=== PATIENT | male | born 1960 | race Caucasian/White ===

== ENCOUNTER 2018-07-16 10:36 | Emergency (ER) | payer OTHER ==
--- NOTE | 2018-07-16 10:58 | EDPHY ---
H & P Stated Complaint: Feels SOB,anxious; abd pain x several days Time Seen by Provider: 07/16/18 10:57 - Personal History Current Tetanus Diphtheria and Acellular Pertussis (TDAP): Yes - Medical/Surgical History Other PMH: HTN. hx broken ribs in May 2018 - Social History Smoking Status: Current every day smoker Constitutional: Initial Vital Signs Temperature (C) 36.4 C 07/16/18 10:39 Heart Rate 72 07/16/18 10:39 Respiratory Rate 18 07/16/18 10:39 Blood Pressure 96/77 L 07/16/18 10:39 O2 Sat (%) 97 07/16/18 10:39 O2 Delivery Mode Nasal Cannula O2 (L/minute) 2 Allergies/Adverse Reactions: No Known Allergies Allergy (Unverified 07/16/18 10:37) Home Medications: Medication Instructions Recorded Hydrocodone/APAP 5/325 [[place] 1 - 2 each PO Q4-6PRN PRN #20 tab 07/16/18 5/325] Lisinopril [Zestril 20 mg (*)] 20 mg PO 07/16/18 amLODIPine BESYLATE [Norvasc 5 mg 5 mg PO DAILY 07/16/18 (*)] Medical Decision Making - Diagnostics Imaging Results: Imaging Impressions Chest X-Ray 07/16/18 11:12 Impression: No acute pulmonary disease. Imaging: I viewed and interpreted images myself ED Course/Re-evaluation: CHIEF COMPLAINT: Shortness of breath HISTORY OF PRESENT ILLNESS: The patient is a 57 y/o male complaining of shortness of breath onset this morning. He reports one month ago he was choking on food and a coworker performed the Heimlich maneuver. He says this resulted in broken ribs and he's had ongoing abdominal pain since then. Yesterday he began vomiting and reports initial emesis was red in color, though he attributed this to eating pizza, and was clear today. Within the last half-hour he developed sudden shortness of breath with no obvious cause. He currently feels like he can't get a full deep breath, but denies chest pain. He has difficulty communicating due to shortness of breath. He denies fever, cough, diarrhea. REVIEW OF SYSTEMS: A comprehensive 10 system review of systems is otherwise negative aside from elements mentioned in the history of present illness and medical decision making. PHYSICAL EXAM: HR, BP, O2 Sat, RR. Temp noted General Appearance: Alert, well hydrated, appropriate, and non-toxic appearing. Head: Atraumatic without scalp tenderness or obvious injury Eyes: Pupils equal, round, reactive to light and accommodation, EOMI, no trauma , no injection. Ears: Clear bilaterally, no perforation, normal landmarks Nose: Atraumatic, no rhinorrhea, clear. Throat: There is no erythema or exudates, no lesions, normal tonsils, mucus membranes moist. Neck: Supple, nontender, no lymphadenopathy. Respiratory: No retractions, no distress, no wheezes, and no accessory muscle use. Decreased breath sounds on the right side to auscultation. Cardiovascular: Regular rate and rhythm, no murmurs, rubs, or gallops. Good capillary refill all extremities. Gastrointestinal: Abdomen is soft, nontender, non-distended, no masses, no rebound, no guarding, no peritoneal signs. Musculoskeletal: Normal active ROM of all extremities, atraumatic. Neurological: Alert, appropriate, and interactive. The patient has non-focal cranial nerves, motor, sensory, and cerebellar exam. Skin: No rashes, good turgor, no nodules on palpation. Past medical history: Recent choking episode with rib injuries Past surgical history: Noncontributory Family history: Noncontributory Social history: Smoker. Lives in [facility] DIAGNOSTICS/PROCEDURES/CRITICAL CARE TIME: Study: PA and Lateral Chest X-ray Indication: Right-sided chest pain Results: After viewing the images myself on the PACS system. My interpretation of the images is: Probable subacute rib fractures right mid axillary line. I have discussed the above x-rays with the radiologist. Study: CT of the chest without contrast Indication: Possible rib fractures after Heimlich maneuver 1 month ago with pleuritic chest pain Results: CT scan of the chest was obtained. The results of the study are no acute process subacute rib fractures 7,8m,9 and 10 right mid axillary line. The study was read by the radiologist, Dr. Edgar Moraes. I viewed the images myself on the PACS system. DIFFERENTIAL DIAGNOSIS: The differential diagnosis for the patient's shortness of breath and hypoxemia included but was not limited to pneumonia, myocardial infarction, acute mountain sickness, high altitude pulmonary edema, congestive heart failure, and pulmonary embolus. MEDICAL DECISION MAKING: This is a 57 y/o male who presents with acute onset shortness of breath in the setting of recent reported rib fractures following a choking episode. He appears distressed and has decreased lung sounds on the right side to auscultation. His vitals are normal. Plan for IV, labs, chest x-ray. Labs are abnormal including elevated creatinine, lactate, and BUN. Electrolytes are abnormal. Plan for rehydration and ISTAT recheck. He does not meet sepsis criteria with normal vitals and a normal WBC. Elevated lactate likely related to dehydration. Chest x-ray shows nothing remarkable. Consulted with Dr. Moraes, radiologist. Plan for chest CT. 1308: Repeat ISTAT shows electrolyte normalization after 3L IV NS. Creatinine has improved to 1.7. This patient was fairly dehydrated but he feels much much better now. His pain is well controlled. He has a little bit of atelectasis and then some subacute rib fractures which are most likely the cause of his chest pain. There is no evidence of pneumonia pneumothorax hemothorax or any other infectious or traumatic issue with a chest. Patient feels comfortable going home at this point. I have encouraged him to continue aggressive hydration as his laboratory studies of improved greatly with a couple L of fluid here. He feels like now that he is in much less pain he will have much better luck with eating and drinking. I will also give him incentive spirometer and some pain medicine which he did not have. He will follow up with primary care doctor. - Data Points Laboratory Results: Laboratory Results 07/16/18 11:00 07/16/18 11:00 07/16/18 07/16/18 07/16/18 12:57 11:00 11:00 WBC RBC Hgb POC Hgb 13.9 gm/dL gm/dL (13.7-17.5) Hct POC Hct 41 % % (40-51) MCV MCH MCHC RDW Plt Count MPV Neut % (Auto) Lymph % (Auto) Cecil % (Auto) Eos % (Auto) Baso % (Auto) Nucleat RBC Rel Count Absolute Neuts (auto) Absolute Lymphs (auto) Absolute Monos (auto) Absolute Eos (auto) Absolute Basos (auto) Absolute Nucleated RBC Immature Gran % Immature Gran # PT 16.4 SEC H SEC (12.0-15.0) INR 1.30 H (0.83-1.16) APTT 26.5 SEC SEC (23.0-38.0) VBG Lactic Acid 3.3 mmol/L H mmol/L (0.7-2.1) POC Sodium 139 mEq/L mEq/L (135-145) Sodium POC Potassium 4.5 mEq/L mEq/L (3.3-5.0) Potassium POC Chloride 110 mEq/L mEq/L (97-110) Chloride Carbon Dioxide Anion Gap POC BUN 43 mg/dL H mg/dL (7-23) BUN Creatinine POC Creatinine 1.7 mg/dL H mg/dL (0.7-1.3) Estimated GFR Glucose POC Glucose 112 mg/dL H mg/dL (70-100) Calcium Total Bilirubin 07/16/18 07/16/18 11:00 11:00 WBC 9.33 10^3/uL 10^3/uL (3.80-9.50) RBC 4.66 10^6/uL 10^6/uL (4.40-6.38) Hgb 14.8 g/dL g/dL (13.7-17.5) POC Hgb Hct 44.6 % % (40.0-51.0) POC Hct MCV 95.7 fL fL (81.5-99.8) MCH 31.8 pg pg (27.9-34.1) MCHC 33.2 g/dL g/dL (32.4-36.7) RDW 12.4 % % (11.5-15.2) Plt Count 201 10^3/uL 10^3/uL (150-400) MPV 10.2 fL fL (8.7-11.7) Neut % (Auto) 88.2 % H % (39.3-74.2) Lymph % (Auto) 7.7 % L % (15.0-45.0) Cecil % (Auto) 2.0 % L % (4.5-13.0) Eos % (Auto) 1.3 % % (0.6-7.6) Baso % (Auto) 0.3 % % (0.3-1.7) Nucleat RBC Rel Count 0.0 % % (0.0-0.2) Absolute Neuts (auto) 8.22 10^3/uL H 10^3/uL (1.70-6.50) Absolute Lymphs (auto) 0.72 10^3/uL L 10^3/uL (1.00-3.00) Absolute Monos (auto) 0.19 10^3/uL L 10^3/uL (0.30-0.80) Absolute Eos (auto) 0.12 10^3/uL 10^3/uL (0.03-0.40) Absolute Basos (auto) 0.03 10^3/uL 10^3/uL (0.02-0.10) Absolute Nucleated RBC 0.00 10^3/uL 10^3/uL (0-0.01) Immature Gran % 0.5 % % (0.0-1.1) Immature Gran # 0.05 10^3/uL 10^3/uL (0.00-0.10) PT INR APTT VBG Lactic Acid POC Sodium Sodium 133 mEq/L L mEq/L (135-145) POC Potassium Potassium 5.2 mEq/L H mEq/L (3.3-5.0) POC Chloride Chloride 99 mEq/L mEq/L (97-110) Carbon Dioxide 17 mEq/l L mEq/l (22-31) Anion Gap 17 mEq/L H mEq/L (6-14) POC BUN BUN 46 mg/dL H mg/dL (7-23) Creatinine 2.3 mg/dL H mg/dL (0.7-1.3) POC Creatinine Estimated GFR 30 Glucose 111 mg/dL H mg/dL (70-100) POC Glucose Calcium 10.1 mg/dL mg/dL (8.5-10.4) Total Bilirubin 1.5 mg/dL H mg/dL (0.1-1.4) Microbiology Results: MICROBIOLOGY 07/16/18 11:30 Nasal, Sinus - Swab Respiratory Panel (PCR) - Final No Organism Detected Medications Given: Discontinued Medications Sodium Chloride (Ns) 1,000 mls @ 0 mls/hr IV EDNOW ONE; Wide Open PRN Reason: Protocol Stop: 07/16/18 11:30 Last Admin: 07/16/18 11:30 Dose: 1,000 mls Sodium Chloride (Ns) 2,000 mls @ 0 mls/hr IV ONCE ONE; Wide Open PRN Reason: Protocol Stop: 07/16/18 11:40 Last Admin: 07/16/18 11:42 Dose: 2,000 mls Oxycodone/Acetaminophen (Percocet 5/325) 2 tab PO EDNOW ONE Stop: 07/16/18 13:33 Last Admin: 07/16/18 13:34 Dose: 2 tab Point of Care Test Results: Chemistry 07/16/18 12:57 POC Sodium 139 mEq/L mEq/L (135-145) POC Potassium 4.5 mEq/L mEq/L (3.3-5.0) POC Chloride 110 mEq/L mEq/L (97-110) POC BUN 43 mg/dL H mg/dL (7-23) POC Creatinine 1.7 mg/dL H mg/dL (0.7-1.3) POC Glucose 112 mg/dL H mg/dL (70-100) ISTAT H&H 07/16/18 12:57 POC Hgb 13.9 gm/dL gm/dL (13.7-17.5) POC Hct 41 % % (40-51) Departure - Departure Clinical Impression: Dehydration, Shortness of breath Ribs, multiple fractures Qualifiers: Encounter type: initial encounter Fracture type: closed Laterality: right Qualified Code(s): S22.41XA - Multiple fractures of ribs, right side, initial encounter for closed fracture Condition: Good Instructions: Dyspnea (ED), Rib Fracture (ED), Dehydration (ED) Additional Instructions: Use your incentive spirometer at least 4 times every hour while awake Referrals: TRACEY VALENTINO MD [Other] - As per Instructions Prescriptions: Hydrocodone/APAP 5/325 [[place] 5/325] 1 - 2 each PO Q4-6PRN PRN #20 tab PRN Reason: Pain, Moderate Report Scribed for: Jomar Anderson Report Scribed by: Genesis Durham Date of Report: 07/16/18 Time of Report: 11:37
[2018-07-16 11:27] LABS: PLATELET COUNT 201 10^3/uL (150-400)
[2018-07-16] MEDS ORDERED: NS 1,000 ML IV ONE (11:29)
[2018-07-16 11:36] LABS: INR 1.3 (0.83-1.16); PROTIME(PATIENT) 16.4 SEC (12.0-15.0)
[2018-07-16] MEDS ORDERED: NS 2,000 ML IV ONE (11:39)
[2018-07-16] MEDS ORDERED: OXYCODONE/APAP 5/325 TAB PO ONE (13:32)
[2018-07-16 14:15] VITALS: BP 117/66
== END 2018-07-16 15:10 | disposition home or self-care (01) ==
DX: R06.02 Shortness of breath (principal); E86.0 Dehydration; I10 Essential (primary) hypertension; F17.200 Nicotine dependence, unspecified, uncomplicated
CPT/HCPCS: 82435-PO; 82565-PO; 82947-PO; 84132-PO; 84295-PO; 84520-PO; 85014-PO